=== PATIENT | female | born 1990 | race Caucasian/White ===

== ENCOUNTER 2018-11-15 10:44 | Emergency (ER) | payer BC ==
[2018-11-15 11:02] VITALS: BP 140/91
[2018-11-15] MEDS ORDERED: Lidocaine 1% MPF ** 5 ML VIAL INJ ONE (11:11)
--- NOTE | 2018-11-15 11:19 | ED ---
Skin Complaint - HPI Summary HPI Summary: Margaret has had a sore spot on her right lateral foot. She was given a prescription for doxycycline last . Inadvertently the instructions said to take it every 2 hours instead of twice a day and also she is out of 20 pills in 2 days. 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 She has a bandage over it and the bandage has discharge on it by the end of the day. - History of Current Complaint Chief Complaint: UCSkin Time Seen by Provider: 11/15/18 11:03 Stated Complaint: rt foot injury Hx Obtained From: Patient Hx Last Menstrual Period: 11/12/18 Onset/Duration: Started Days Ago Skin Exposure Onset/Duration: Weeks Ago Timing: Constant Onset Severity: Moderate Current Severity: Moderate Pain Intensity: 8 Skin Location: Foot - Allergy/Home Medications Allergies/Adverse Reactions: Allergies Allergy/AdvReac Type Severity Reaction Status Date / Time No Known Allergies Allergy Verified 03/13/16 14:53 Home Medications: Home Medications Amlodipine Besylate [Norvasc] 0.5 tab PO DAILY 11/15/18 [History Confirmed 11/15] Cortisone Im 1 unit IM MONTHLY 11/15/18 [History Confirmed 11/15/18] Cyclobenzaprine HCl 1 tab PO QPM 11/15/18 [History Confirmed 11/15/18] Doxycycline Hyclate 1 tab PO BID 11/15/18 [History Confirmed 11/15/18] Meloxicam 15 mg PO DAILY 11/15/18 [History Confirmed 11/15/18] PMH/Surg Hx/FS Hx/Imm Hx Cardiovascular History: Reports: Hx Hypertension - Surgical History Surgery Procedure, Year, and Place: TUMORS REMOVED Infectious Disease History: No Infectious Disease History: Denies: Traveled Outside the [place] in Last 30 Days - Family History Known Family History: Positive: None - negative for HTN or CAD - Social History Alcohol Use: Occasionally Substance Use Type: Reports: None Smoking Status (MU): Current Some Day Smoker Type: Smokeless Tobacco Amount Used/How Often: daily - approx 1 tin per week Have You Smoked in the Last Year: Yes Review of Systems Constitutional: Negative Skin: Other - skin wound right foot All Other Systems Reviewed And Are Negative: Yes Physical Exam - Summary Physical Exam Summary: She is nontoxic in appearance with stable vital signs. Triage Information Reviewed: Yes Vital Signs On Initial Exam: Initial Vitals Temp Pulse Resp BP Pulse Ox 98.1 F 88 18 140/91 100 11/15/18 10:51 11/15/18 10:51 11/15/18 10:51 11/15/18 10:51 11/15/18 10:51 Vital Signs Reviewed: Yes Appearance: Positive: Well-Appearing Skin: Positive: Warm, Dry, Other - There is a swollen area over her right foot laterally. This is at the area of the MPJ. It feels very tender and somewhat fluctuant. It is open slightly in the middle with some granulation tissue. Musculoskeletal: Positive: Normal Neurological: Positive: Normal Procedures - Incision and Drainage Right Lateral Distal Foot Anesthesia: Lidocaine Instrument(s): Scalpel Diagnostics - Vital Signs Vital Signs Temp Pulse Resp BP Pulse Ox 11/15/18 10:51 98.1 F 88 18 140/91 100 - Laboratory Lab Statement: Any lab studies that have been ordered have been reviewed, and results considered in the medical decision making process. Course/Dx - Course Course Of Treatment: Margaret wanted to see if we could drain this wound so that she would be ready for exercises next weekend for the . I used an 11 blade after prepping and draping the area but I was unable to obtain any pus. I will give her some time off work and antibiotic. Doxycycline is a good choice and even though she took an enormous amount fairly quickly, she has no stomach pain or ill effects. - Diagnoses Provider Diagnoses: Skin infection Discharge - Sign-Out/Discharge Documenting (check all that apply): Patient Departure All imaging exams completed and their final reports reviewed: No Studies - Discharge Plan Condition: Stable Disposition: HOME Patient Education Materials: Acute Wound Care (ED) Forms: *Work Release Referrals: Brianna Mcbride [Primary Care Provider] - - Billing Disposition and Condition Condition: STABLE Disposition: Home
== END 2018-11-15 12:13 | disposition home or self-care (01) ==
LOC: UCEAST 10:44
DX: L08.9 Local infection of the skin and subcutaneous tissue, unspecified (principal); I10 Essential (primary) hypertension; F17.210 Nicotine dependence, cigarettes, uncomplicated
CPT/HCPCS: 10060; 99212; G0463

== ENCOUNTER 2018-12-08 17:23 | Emergency (ER) | payer BC ==
[2018-12-08 17:43] VITALS: BP 127/75
--- NOTE | 2018-12-08 18:02 | UC ---
Lower Extremity/Ankle HPI - HPI Summary HPI Summary: 28-year-old female presents with complaints of a tender lesion to her right foot. Patient was seen this facility on 11/15/2018 for same complaint. At that time she had had the sore for several days. Had been seen on 11/11/2018 by the [place] rubber engraver and started on doxycycline however the instructions for how to take her antibiotic were entered incorrectly and the patient took the entire course over 2 days. Patient states that the lesion developed due to rubbing on her sneaker. 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 She states that the wound has been slowly healing and is improved however she continues to have tenderness especially with any pressure over the lesion. She is scheduled to have her PT test for the [facility] this weekend and is concerned that she will not be able to perform to her full capacity due to the pain. Denies any fever, chills, erythema, drainage, joint pain, decreased range of motion, numbness, or tingling. - History of Current Complaint Chief Complaint: UCLowerExtremity Stated Complaint: FOOT COMPLAINT Time Seen by Provider: 12/08/18 17:41 Hx Obtained From: Patient Hx Last Menstrual Period: 3 days ago Pain Intensity: 8 - Allergies/Home Medications Allergies/Adverse Reactions: Allergies Allergy/AdvReac Type Severity Reaction Status Date / Time No Known Allergies Allergy Verified 12/08/18 17:44 PMH/Surg Hx/FS Hx/Imm Hx - Additional Past Medical History Additional PMH: chronic back pain Cardiovascular History: Hypertension - Surgical History Surgical History: Yes Surgery Procedure, Year, and Place: TUMORS REMOVED - Family History Known Family History: Positive: Non-Contributory - Social History Occupation: Employed Full-time Lives: With Family Alcohol Use: Occasionally Substance Use Type: None Smoking Status (MU): Current Some Day Smoker Type: Smokeless Tobacco Amount Used/How Often: daily - approx 1 tin per week Have You Smoked in the Last Year: Yes - Immunization History Most Recent Tetanus Shot: 2 YRS AGO Review of Systems All Other Systems Reviewed And Are Negative: Yes Constitutional: Negative: Fever, Chills Skin: Positive: Other - See HPI Respiratory: Positive: Negative Cardiovascular: Positive: Negative Gastrointestinal: Positive: Negative Genitourinary: Positive: Negative Motor: Negative: Weakness Neurovascular: Negative: Decreased Sensation Musculoskeletal: Negative: Arthralgia, Decreased ROM Neurological: Positive: Negative Is Patient Immunocompromised?: No Physical Exam - Summary Physical Exam Summary: GENERAL APPEARANCE: Well developed, well nourished, alert and cooperative, and appears to be in no acute distress. CARDIAC: Normal S1 and S2. No S3, S4 or murmurs. Rhythm is regular. There is no peripheral edema, cyanosis or pallor. Extremities are warm and well perfused. Capillary refill is less than 2 seconds. Peripheral pulses intact. LUNGS: Clear to auscultation without rales, rhonchi, wheezing or diminished breath sounds. ABDOMEN: Positive bowel sounds. Soft, nondistended, nontender. No guarding or rebound. No masses or hepatosplenomegally. MUSKULOSKELETAL: ROM intact to all extremities. No joint erythema or tenderness. Normal muscular development. Normal gait. EXTREMITIES: Tenderness with mild edema to the lateral aspect of the right foot over the right 5th MTP. Area of crusting centrally. No erythema, induration, fluctuance, or drainage noted. SKIN: Skin normal color, texture and turgor. Triage Information Reviewed: Yes Vital Signs: Initial Vital Signs Temp 99.1 F 12/08/18 17:37 Pulse 90 12/08/18 17:37 Resp 16 12/08/18 17:37 BP 127/75 12/08/18 17:37 Pulse Ox 100 12/08/18 17:37 Vital Signs Reviewed: Yes Images Feet (Multiple View): 1 - Tenderness with mild edema. Area of crusting centrally. No erythema, induration, fluctuance, or drainage noted. Lower Extremity Course/Dx - Course Course Of Treatment: 28-year-old female presents with complaints of a tender lesion to her right foot. Patient was seen this facility on 11/15/2018 for same complaint. At that time she had had the sore for several days. Had been seen on 11/11/2018 by the [place] rubber engraver and started on doxycycline however the instructions for how to take her antibiotic were entered incorrectly and the patient took the entire course over 2 days. Patient states that the lesion developed due to rubbing on her sneaker. 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 She states that the wound has been slowly healing and is improved however she continues to have tenderness especially with any pressure over the lesion. 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 Denies any fever, chills, erythema, drainage, joint pain, decreased range of motion, numbness, or tingling. Afebrile. Vital signs stable. Patient had tenderness with mild edema to the lateral aspect of the right foot over the right 5th MTP. Area of crusting centrally. No erythema, induration, fluctuance, or drainage noted. Remainder of exam was unremarkable. Discussed with the patient that the lesion does appear to be healing and I do not see any evidence of infection at this time and I do not think antibiotics are warranted. I will provide her with a note to allow her to postpone her PT test at this time. She is to follow-up again with the [place] rubber engraver for reevaluation. Recommend continued conservative treatment including soaks with warm water and Epsom salt solution and [id number] analgesics. Anticipatory guidance and warning symptoms were reviewed with the patient. Verbalizes understanding and agrees with plan of care. - Differential Dx/Diagnosis Provider Diagnosis: Soft tissue lesion of foot Discharge - Sign-Out/Discharge Documenting (check all that apply): Patient Departure All imaging exams completed and their final reports reviewed: No Studies - Discharge Plan Condition: Stable Disposition: HOME Forms: *Work Release Referrals: Brianna Mcbride [Primary Care Provider] - Additional Instructions: The lesion to your right foot appears to be healing. I do not see any evidence of infection at this time. I would recommend that you continue doing soaks in warm water and Epsom salt at least twice a day. Be sure to keep the wound covered to keep it clean. Follow up with the [place] rubber engraver at the next available appointment. Seek immediate medical attention it you develop fever greater than 100.5 F, have redness that spreads, increased swelling, pain that is not managed with over the counter pain medication, or any worsening of symptoms. - Billing Disposition and Condition Condition: STABLE Disposition: Home - Attestation Statements Provider Attestation: Per institutional requirements, I have reviewed the chart, however, I was not consulted specifically or made aware of this patient by the midlevel provider. I did not personally evaluate, interact with , or disposition this patient.
== END 2018-12-08 18:27 | disposition home or self-care (01) ==
LOC: UCEAST 17:23
DX: L98.9 Disorder of the skin and subcutaneous tissue, unspecified (principal); F17.210 Nicotine dependence, cigarettes, uncomplicated
CPT/HCPCS: 99211; G0463

== ENCOUNTER 2019-03-17 17:24 | Emergency (ER) | payer BC, OTHER ==
[2019-03-17 18:37] VITALS: BP 140/86
--- NOTE | 2019-03-17 18:58 | UC ---
Back Pain HPI - HPI Summary HPI Summary: Pt presents with c/o of sudden onset of worsening right side low back pain. 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 Pt has hx of congenital back/ spine disorder and sees pain management and goes to [place] for pain block injection every 3 months. - History of Current Complaint Chief Complaint: UCBackPain Stated Complaint: BACK INJ - WC Time Seen by Provider: 03/17/19 18:48 Hx Obtained From: Patient Hx Last Menstrual Period: 03/07/19 ?: No Onset/Duration: Sudden Onset Timing: Constant Severity Initially: Moderate Severity Currently: Moderate Pain Intensity: 8 Back Pain: Is Discrete @ - right lower back Character: Dull, Stiffness Aggravating Factor(s): Movement Alleviating Factor(s): Rest, Position Associated Signs And Symptoms: Positive: Negative - Risk Factors AAA Risk Factors: Negative TAD Risk Factors: Negative Cauda Equina Risk Factors: Negative Epidural Abscess Risk Factors: Negative - Allergies/Home Medications Allergies/Adverse Reactions: Allergies Allergy/AdvReac Type Severity Reaction Status Date / Time No Known Allergies Allergy Verified 03/17/19 18:36 PMH/Surg Hx/FS Hx/Imm Hx Previously Healthy: Yes - Surgical History Surgical History: Yes Surgery Procedure, Year, and Place: Left neck, left arm, 4 on left inner thigh TUMORS REMOVED - Family History Known Family History: Positive: None - negative for HTN or CAD, Non-Contributory - Social History Occupation: Employed Full-time Lives: With Family Alcohol Use: Occasionally Substance Use Type: None Smoking Status (MU): Former Smoker Type: Smokeless Tobacco Amount Used/How Often: daily - approx 1 tin per week Have You Smoked in the Last Year: Yes - Immunization History Most Recent Tetanus Shot: 2 YRS AGO Vaccination Up to Date: Yes Review of Systems All Other Systems Reviewed And Are Negative: Yes Constitutional: Positive: Negative Skin: Positive: Negative Eyes: Positive: Negative ENT: Positive: Negative Respiratory: Positive: Negative Cardiovascular: Positive: Negative Gastrointestinal: Positive: Negative Genitourinary: Positive: Negative Motor: Positive: Decreased ROM - pain with ROM Neurovascular: Positive: Negative Musculoskeletal: Positive: Decreased ROM - pain with rom, Myalgia - right side low Neurological: Positive: Negative Psychological: Positive: Negative Is Patient Immunocompromised?: No Physical Exam Triage Information Reviewed: Yes Appearance: Well-Appearing Vital Signs: Initial Vital Signs Temp 98.4 F 03/17/19 18:27 Pulse 90 03/17/19 18:27 Resp 20 03/17/19 18:27 BP 140/86 03/17/19 18:27 Pulse Ox 98 03/17/19 18:27 Vital Signs Reviewed: Yes Eye Exam: Normal ENT Exam: Normal Dental Exam: Normal Neck exam: Normal Respiratory: Positive: No respiratory distress Musculoskeletal Exam: Normal Musculoskeletal: Positive: Strength Intact, ROM Intact Neurological Exam: Normal Psychological Exam: Normal Skin Exam: Normal Back Pain Course/Dx - Differential Dx/Diagnosis Differential Diagnosis/HQI/PQRI: Herniated Disc, Strain, Sprain Provider Diagnosis: Low back strain Discharge ED - Sign-Out/Discharge Documenting (check all that apply): Patient Departure All imaging exams completed and their final reports reviewed: No Studies - Discharge Plan Condition: Stable Disposition: HOME Patient Education Materials: Low Back Strain (ED), Core Strengthening Exercises (GEN), Lower Back Exercises (ED) Forms: *Work Release Referrals: Brianna Mcbride [Primary Care Provider] - As Soon As Possible Additional Instructions: Please follow up with your PCP and your pain clinic provider as soon as possible - Billing Disposition and Condition Condition: STABLE Disposition: Home
== END 2019-03-17 19:14 | disposition home or self-care (01) ==
LOC: UCCORT 17:24
DX: S39.012A Strain of muscle, fascia and tendon of lower back, initial encounter (principal); Z87.891 Personal history of nicotine dependence; X50.9XXA Other and unspecified overexertion or strenuous movements or postures, initial encounter; Y92.9 Unspecified place or not applicable
CPT/HCPCS: 99211; G0463

== ENCOUNTER 2019-06-15 07:12 | Emergency (ER) | payer BC ==
[2019-06-15 07:28] VITALS: BP 132/78
[2019-06-15 07:44] LABS: Influenza A Molecular POSITIVE (Negative)
--- NOTE | 2019-06-15 08:05 | UC ---
FLU HPI - HPI Summary HPI Summary: 2 DAYS OF COUGH, CONGESTION, EAR PAIN, SORE THROAT, FEVER, CHILLS, FATIGUE, HEADACHE AND BODY PAIN. UP-TO-DATE FLU SHOT THIS SEASON. - History of Current Complaint Chief Complaint: UCGeneralIllness Stated Complaint: COUGH, CHEST CONGESTION Time Seen by Provider: 06/15/19 07:34 Hx Obtained From: Patient Hx Last Menstrual Period: implant Onset/Duration: Gradual Onset, Lasting Days, Still Present Severity Currently: Moderate Severity Initially: Moderate Pain Intensity: 2 Pain Scale Used: 0-10 Numeric Associated Signs & Symptoms: Positive: Fever, Myalgia, Cough, Sore Throat, Nasal Congestion, Headache - Allergy/Home Medications Allergies/Adverse Reactions: Allergies Allergy/AdvReac Type Severity Reaction Status Date / Time No Known Allergies Allergy Verified 06/15/19 07:20 PMH/Surg Hx/FS Hx/Imm Hx Cardiovascular History: Hypertension - Surgical History Surgical History: Yes Surgery Procedure, Year, and Place: Left neck, left arm, 4 on left inner thigh TUMORS REMOVED - Family History Known Family History: Positive: Non-Contributory - Social History Alcohol Use: Occasionally Substance Use Type: None Smoking Status (MU): Former Smoker Type: Smokeless Tobacco Amount Used/How Often: daily - approx 1 tin per week Have You Smoked in the Last Year: Yes - Immunization History Most Recent Tetanus Shot: 2 YRS AGO Vaccination Up to Date: Yes Review of Systems All Other Systems Reviewed And Are Negative: Yes Constitutional: Positive: Fever, Chills, Fatigue ENT: Positive: Sore Throat, Ear Ache, Nasal Discharge Respiratory: Positive: Cough Cardiovascular: Positive: Negative Gastrointestinal: Positive: Negative Musculoskeletal: Positive: Myalgia Neurological/Mental Status: Positive: Headache Physical Exam Triage Information Reviewed: Yes Appearance: No Pain Distress, Well-Nourished, Ill-Appearing - FATIGUED Vital Signs: Initial Vital Signs Temp 100.2 F 06/15/19 07:21 Pulse 112 06/15/19 07:21 Resp 20 06/15/19 07:21 BP 132/78 06/15/19 07:21 Pulse Ox 98 06/15/19 07:21 Laboratory Tests 06/15/19 07:40 Influenza A (Rapid) Positive H Vital Signs Reviewed: Yes Eyes: Positive: Conjunctiva Clear ENT: Positive: Hearing grossly normal, Pharynx normal, TMs normal Neck: Positive: Supple, Nontender, No Lymphadenopathy Respiratory Exam: Normal Cardiovascular: Positive: Tachycardia Abdomen Description: Positive: Soft Musculoskeletal: Positive: No Edema Neurological: Positive: Alert Psychological: Positive: Age Appropriate Behavior Skin: Negative: Rashes Flu Course/Dx - Course Course Of Treatment: SWAB POSITIVE INFLUENZA A. TAMIFLU TWICE DAILY FOR 5 DAYS. REST, HYDRATE, OTC MEDS. FOLLOW-UP IF NOT IMPROVING EXPECTED. NOTE FOR WORK PROVIDED. - Differential Dx/Diagnosis Provider Diagnosis: Influenza A Discharge ED - Sign-Out/Discharge Documenting (check all that apply): Patient Departure All imaging exams completed and their final reports reviewed: No Studies - Discharge Plan Condition: Stable Disposition: HOME Prescriptions: Oseltamivir CAP* [Tamiflu CAP*] 75 mg PO BID #10 cap Patient Education Materials: Influenza (ED) Forms: *Work Release Referrals: Brianna Mcbride [Primary Care Provider] - If Needed Additional Instructions: SWAB POSITIVE FOR INFLUENZA A. TAMIFLU TWICE DAILY FOR 5 DAYS. OTC MEDS NEEDED FOR FEVER, BODY ACHES. STAY WELL HYDRATED AND RESTED. SEEK FOLLOW-UP IF YOU ARE NOT IMPROVING EXPECTED. - Billing Disposition and Condition Condition: STABLE Disposition: Home
== END 2019-06-15 08:02 | disposition home or self-care (01) ==
LOC: UCEAST 07:12
DX: J10.1 Influenza due to other identified influenza virus with other respiratory manifestations (principal); I10 Essential (primary) hypertension; Z87.891 Personal history of nicotine dependence
CPT/HCPCS: 99212; G0463